=== PATIENT | female | born 1950 | race Caucasian/White ===

== ENCOUNTER → 2020-01-24 17:06 | Outpatient (CLI) | payer MEDICARE, SELFPAY ==
[2020-01-24 17:29] LABS: Basophils # 0.1 K/mm3 (0-0.2); Basophils % 0.7 % (0.1-2.0); Eosinophils # 0.3 K/mm3 (0.0-0.4); Eosinophils % 2.8 % (0.1-12.0); Hematocrit 45.6 % (37.0-47.0); Hemoglobin 14.3 g/dL (12.2-16.2); Lymphocytes # 2.7 K/mm3 (0.7-4.5); Lymphocytes % 25.3 % (10-50); Mean Corpuscular HGB Conc 31.4 g/dL (31.8-35.4); Mean Corpuscular Hemoglobin 27.7 pg (27.0-31.2); Mean Platelet Volume 9.3 fl (7.4-10.4); Monocytes # 0.5 K/mm3 (0.1-1.0); Monocytes % 4.8 % (1.7-9.3); Neutrophils % 66.3 % (37.0-80.0); Platelet Count 360 K/mm3 (142-424); Red Blood Count 5.18 M/mm3 (4.20-5.40); Red Cell Distribution Width 15.5 % (11.5-17.5); White Blood Count 10.6 K/mm3 (4.8-10.8)
[2020-01-24 17:30] LABS: Alanine Aminotransferase 28 U/L (12-78); Albumin Level 4.5 g/dl (3.5-5.0); Albumin/Globulin Ratio 1.5 (1.1-1.8); Alkaline Phosphatase 126 U/L (38-126); Anion Gap 17.3 mEq/L (5-15); Aspartate Amino Transferase 38 U/L (14-36); Bilirubin,Total 0.6 mg/dl (0.2-1.3); Blood Urea Nitrogen 16 mg/dl (7-17); Calcium 10.1 mg/dl (8.4-10.2); Carbon Dioxide 29 mmol/L (22.0-30.0); Chloride 98 mmol/L (98-107); Chol/HDL Ratio 4.1 (1-3.5); Cholesterol 192 mg/dl (140-200); Estimated Glomerular Filt Rate 44 ml/min (>60); GFR (African American) 54 ML/MIN (>60); Globulin 3.1 g/dL (1.3-3.2); Glucose 119 mg/dl (74-100); HDL Cholesterol 47 mg/dl (40-60); Potassium 4.3 mmoL/L (3.5-5.1); Sodium 140 mmol/L (136-145); Total Protein,Serum 7.6 g/dl (6.3-8.2); Triglycerides 271 mg/dl (30-150); VLDL Cholesterol 54 mg/dL (0-40)
[2020-01-24 17:41] LABS: Direct LDL Cholesterol 104.34 mg/dL (100-129)
[2020-01-24 18:00] LABS: Thyroid Stimulating Hormone 1.76 uIU/mL (0.465-4.68)
== END ==
PROVIDERS: Visit Provider Family Medicine
DX: E03.9 Hypothyroidism, unspecified (principal); R53.83 Other fatigue; K59.00 Constipation, unspecified
CPT/HCPCS: 80053; 80061; 84439; 84443; 85025

== ENCOUNTER → 2021-09-10 07:00 | Outpatient (CLI) | payer MEDICARE, SELFPAY ==
[2021-09-09 18:38] LABS: Alanine Aminotransferase 21 U/L (12-78); Albumin Level 3.9 g/dl (3.5-5.0); Albumin/Globulin Ratio 1.4 (1.1-1.8); Alkaline Phosphatase 87 U/L (38-126); Anion Gap 12.4 mEq/L (5-15); Aspartate Amino Transferase 31 U/L (14-36); Bilirubin,Total 0.3 mg/dl (0.2-1.3); Blood Urea Nitrogen 15 mg/dl (7-17); Calcium 9.7 mg/dl (8.4-10.2); Carbon Dioxide 33 mmol/L (22.0-30.0); Chloride 100 mmol/L (98-107); Chol/HDL Ratio 4.9 (1-3.5); Cholesterol 163 mg/dl (140-200); Estimated Glomerular Filt Rate 55 ml/min (>60); GFR (African American) 66 ML/MIN (>60); Globulin 2.8 g/dL (1.3-3.2); Glucose 123 mg/dl (74-100); HDL Cholesterol 33 mg/dl (40-60); Potassium 4.4 mmoL/L (3.5-5.1); Sodium 141 mmol/L (136-145); Total Protein,Serum 6.7 g/dl (6.3-8.2); Triglycerides 264 mg/dl (30-150); VLDL Cholesterol 53 mg/dL (0-40)
[2021-09-09 18:50] LABS: Direct LDL Cholesterol 83.29 mg/dL (100-129)
[2021-09-09 18:55] LABS: 25-OH Vitamin D, Total 49.8 ng/mL (30-100)
[2021-09-09 18:56] LABS: T4 (Thyroxine) 12.2 ug/dl (5.53-11.0)
[2021-09-09 19:09] LABS: Thyroid Stimulating Hormone 1.75 uIU/mL (0.465-4.68)
[2021-09-09 20:05] LABS: Basophils # 0.1 K/mm3 (0-0.2); Basophils % 1.4 % (0.1-2.0); Eosinophils # 0.4 K/mm3 (0.0-0.4); Eosinophils % 5.2 % (0.1-12.0); Hematocrit 42.6 % (37.0-47.0); Hemoglobin 13.8 g/dL (12.2-16.2); Lymphocytes # 2.7 K/mm3 (0.7-4.5); Mean Corpuscular HGB Conc 32.3 g/dL (31.8-35.4); Mean Corpuscular Hemoglobin 29.5 pg (27.0-31.2); Mean Corpuscular Volume 91.4 fl (81-99); Mean Platelet Volume 10.3 fl (7.4-10.4); Monocytes # 0.4 K/mm3 (0.1-1.0); Monocytes % 5.6 % (1.7-9.3); Neutrophils % 52.7 % (37.0-80.0); Platelet Count 254 K/mm3 (142-424); Red Blood Count 4.67 M/mm3 (4.20-5.40); Red Cell Distribution Width 14.9 % (11.5-17.5); White Blood Count 7.7 K/mm3 (4.8-10.8)
== END ==
PROVIDERS: PCP Family Medicine; Visit Provider Family Medicine
DX: E03.9 Hypothyroidism, unspecified (principal); I10 Essential (primary) hypertension; E55.9 Vitamin D deficiency, unspecified
CPT/HCPCS: 80053; 80061; 82306; 84436; 84443; 85025

== ENCOUNTER → 2022-03-22 16:04 | Outpatient (CLI) | payer MEDICARE, BC, SELFPAY ==
--- NOTE | 2022-03-22 16:04 | MR_ITS ---
PROCEDURE INFORMATION: Exam: MR Left Lower Extremity Joint Without Contrast; Hip Exam date and time: 03/22/2022 4:38 PM Age: 71 years old Clinical indication: Pain; Hip; Left; Prior surgery; Additional info: Worsening pain without trauma TECHNIQUE: Imaging protocol: Magnetic resonance imaging of the Left lower extremity joint without contrast. Exam focused on the hip. COMPARISON: No relevant prior studies available. FINDINGS: Bones and cartilage: No visualized acute marrow edema, dislocation, or avascular necrosis of the left hip. Magnetic susceptibility artifact from postoperative change is identified involving the lower lumbar spine and sacrum. Additional postsurgical change/hardware is seen traversing the bilateral sacroiliac joints. Mild left subcapital femoral spurring is seen. There is narrowing of the bilateral hip joint spaces superiorly. Irregularity/spurring of the superior acetabula bilaterally. These findings are consistent with hip arthropathy. Joint spaces: Small bilateral hip joint effusions. An 8 mm hypointense loose body is seen within the left hip joint effusion. Labrum: Evaluation of the hip labrum is technically limited, although no definitive labral tear is visualized. TENDONS: Tendons of iliopsoas group: Unremarkable. No evidence of tear. Tendons of medial compartment of thigh: No evidence of tear. Tendons of lateral rotators of hip: No evidence of tear. Tendons of gluteal group: No evidence of tear. Muscles: Patchy muscle atrophy visualized. Soft tissues: Minimal soft tissue edema lateral to each hip. Within the left adnexa, there is a 2.9 x 2.2 x 3.2 cm STIR hyperintense cyst. Lymph nodes: Small nonspecific bilateral inguinal lymph nodes visualized. Bowel: Bowel is contained within a ventral abdominal wall hernia. No visualized bowel distention. Evaluation of this finding is limited. Reproductive: The uterus is absent. IMPRESSION: 1. Small bilateral hip joint effusions. An 8 mm hypointense loose body is seen within the left hip joint effusion. 2. Bilateral hip arthropathy. 3. Postoperative changes involving the lumbosacral spine and traversing the bilateral sacroiliac joints. 4. Bowel is contained within a ventral abdominal wall hernia. No visualized bowel distention. Evaluation of this finding is limited. Correlation with a CT of the abdomen/pelvis is recommended, as clinically indicated. 5. Within the left adnexa, there is a 2.9 x 2.2 x 3.2 cm cyst. 6. Additional findings described above.
== END ==
PROVIDERS: PCP Family Medicine; Visit Provider Family Medicine
DX: M25.552 Pain in left hip (principal)
CPT/HCPCS: 73721

== ENCOUNTER → 2022-04-29 15:14 | Outpatient (CLI) | payer MEDICARE, BC, SELFPAY ==
[2022-04-29 15:06] LABS: Basophils # 0.1 K/mm3 (0-0.2); Basophils % 0.6 % (0.1-2.0); Eosinophils # 0.4 K/mm3 (0.0-0.4); Eosinophils % 2.7 % (0.1-12.0); Hematocrit 42.6 % (37.0-47.0); Lymphocytes # 2.2 K/mm3 (0.7-4.5); Lymphocytes % 16.8 % (10-50); Mean Corpuscular HGB Conc 32.9 g/dL (31.8-35.4); Mean Corpuscular Hemoglobin 30.3 pg (27.0-31.2); Mean Corpuscular Volume 91.9 fl (81-99); Mean Platelet Volume 10.3 fl (7.4-10.4); Monocytes # 0.6 K/mm3 (0.1-1.0); Monocytes % 4.8 % (1.7-9.3); Neutrophils # 9.8 K/mm3 (1.8-7.8); Neutrophils % 75.1 % (37.0-80.0); Platelet Count 381 K/mm3 (142-424); Red Blood Count 4.64 M/mm3 (4.20-5.40); Red Cell Distribution Width 14.1 % (11.5-17.5)
[2022-04-29 15:20] LABS: Alanine Aminotransferase 24 U/L (12-78); Albumin Level 3.9 g/dl (3.5-5.0); Albumin/Globulin Ratio 1.7 (1.1-1.8); Alkaline Phosphatase 76 U/L (38-126); Anion Gap 10.7 mEq/L (5-15); Aspartate Amino Transferase 25 U/L (14-36); Bilirubin,Total 0.7 mg/dl (0.2-1.3); Blood Urea Nitrogen 30 mg/dl (7-17); Carbon Dioxide 34 mmol/L (22.0-30.0); Chloride 93 mmol/L (98-107); Chol/HDL Ratio 5.7 (1-3.5); Cholesterol 176 mg/dl (140-200); Estimated Glomerular Filt Rate 34 ml/min (>60); GFR (African American) 41 ML/MIN (>60); Globulin 2.3 g/dL (1.3-3.2); Glucose 149 mg/dl (74-100); HDL Cholesterol 31 mg/dl (40-60); Potassium 4.7 mmoL/L (3.5-5.1); Sodium 133 mmol/L (136-145); Total Protein,Serum 6.2 g/dl (6.3-8.2); Triglycerides 344 mg/dl (30-150); Uric Acid 10.8 mg/dl (2.5-6.2); VLDL Cholesterol 69 mg/dL (0-40)
[2022-04-29 15:31] LABS: Direct LDL Cholesterol 85.79 mg/dL (100-129)
== END ==
PROVIDERS: PCP Family Medicine; Visit Provider Family Medicine
DX: E03.9 Hypothyroidism, unspecified (principal); M10.9 Gout, unspecified
CPT/HCPCS: 80053; 80061; 84443; 84550; 85025

== ENCOUNTER → 2022-08-11 23:20 | Outpatient (CLI) | payer MEDICARE, BC, SELFPAY ==
[2022-08-11 18:43] LABS: Alanine Aminotransferase 22 U/L (12-78); Albumin Level 3.9 g/dl (3.5-5.0); Albumin/Globulin Ratio 1.5 (1.1-1.8); Alkaline Phosphatase 85 U/L (38-126); Anion Gap 18.9 mEq/L (5-15); Aspartate Amino Transferase 28 U/L (14-36); Bilirubin,Total 0.5 mg/dl (0.2-1.3); Blood Urea Nitrogen 18 mg/dl (7-17); Calcium 8.8 mg/dl (8.4-10.2); Carbon Dioxide 28 mmol/L (22.0-30.0); Chloride 95 mmol/L (98-107); Estimated Glomerular Filt Rate 49 ml/min (>60); GFR (African American) 59 ML/MIN (>60); Globulin 2.6 g/dL (1.3-3.2); Glucose 144 mg/dl (74-100); Potassium 3.9 mmoL/L (3.5-5.1); Sodium 138 mmol/L (136-145); Total Protein,Serum 6.5 g/dl (6.3-8.2); Uric Acid 7.7 mg/dl (2.5-6.2)
== END ==
PROVIDERS: PCP Family Medicine; Visit Provider Family Medicine
DX: M10.9 Gout, unspecified (principal)
CPT/HCPCS: 80053; 84550

== ENCOUNTER → 2023-02-20 08:17 | Outpatient (CLI) | payer MEDICARE, BC, SELFPAY ==
[2023-02-20 19:45] LABS: Basophils # 0.1 K/mm3 (0-0.2); Basophils % 0.6 % (0.1-2.0); Eosinophils # 0.2 K/mm3 (0.0-0.4); Eosinophils % 2.7 % (0.1-12.0); Hematocrit 44.8 % (37.0-47.0); Lymphocytes # 2.5 K/mm3 (0.7-4.5); Lymphocytes % 28.6 % (10-50); Mean Corpuscular HGB Conc 33.5 g/dL (31.8-35.4); Mean Corpuscular Hemoglobin 30.5 pg (27.0-31.2); Mean Corpuscular Volume 91.2 fl (81-99); Mean Platelet Volume 10.4 fl (7.4-10.4); Monocytes # 0.4 K/mm3 (0.1-1.0); Monocytes % 4.9 % (1.7-9.3); Neutrophils # 5.4 K/mm3 (1.8-7.8); Neutrophils % 63.2 % (37.0-80.0); Platelet Count 287 K/mm3 (142-424); Red Blood Count 4.91 M/mm3 (4.20-5.40); Red Cell Distribution Width 14.6 % (11.5-17.5); White Blood Count 8.6 K/mm3 (4.8-10.8)
[2023-02-20 19:53] LABS: Alanine Aminotransferase 20 U/L (12-78); Albumin/Globulin Ratio 1.4 (1.1-1.8); Alkaline Phosphatase 83 U/L (38-126); Anion Gap 14.9 mEq/L (5-15); Aspartate Amino Transferase 29 U/L (14-36); Bilirubin,Total 0.7 mg/dl (0.2-1.3); Blood Urea Nitrogen 24 mg/dl (7-17); Calcium 9.1 mg/dl (8.4-10.2); Carbon Dioxide 27 mmol/L (22.0-30.0); Chloride 98 mmol/L (98-107); Chol/HDL Ratio 7.1 (1-3.5); Cholesterol 191 mg/dl (140-200); Estimated Glomerular Filt Rate 44 ml/min (>60); GFR (African American) 53 ML/MIN (>60); Globulin 2.9 g/dL (1.3-3.2); Glucose 135 mg/dl (74-100); HDL Cholesterol 27 mg/dl (40-60); Potassium 3.9 mmoL/L (3.5-5.1); Sodium 136 mmol/L (136-145); Total Protein,Serum 6.9 g/dl (6.3-8.2); Triglycerides 257 mg/dl (30-150); Uric Acid 8.5 mg/dl (2.5-6.2); VLDL Cholesterol 51 mg/dL (0-40)
[2023-02-20 20:04] LABS: Direct LDL Cholesterol 108.69 mg/dL (100-129)
[2023-02-20 20:23] LABS: Thyroid Stimulating Hormone 0.48 uIU/mL (0.465-4.68)
== END ==
PROVIDERS: PCP Family Medicine; Visit Provider Family Medicine
DX: E03.9 Hypothyroidism, unspecified; M10.9 Gout, unspecified; E07.9 Disorder of thyroid, unspecified; E78.5 Hyperlipidemia, unspecified; Z13.1 Encounter for screening for diabetes mellitus; Z79.899 Other long term (current) drug therapy
CPT/HCPCS: 80053; 80061; 83036; 84443; 84550; 85025

== ENCOUNTER 2024-01-29 11:15 | Outpatient (CLI) | payer MEDICARE, BC, SELFPAY ==
[2024-01-29 18:57] LABS: Basophils # 0.1 K/mm3 (0-0.2); Basophils % 0.7 % (0.1-2.0); Eosinophils # 0.2 K/mm3 (0.0-0.4); Hematocrit 41.9 % (37.0-47.0); Hemoglobin 13.5 g/dL (12.2-16.2); Lymphocytes # 1.6 K/mm3 (0.7-4.5); Lymphocytes % 16.8 % (10-50); Mean Corpuscular HGB Conc 32.3 g/dL (31.8-35.4); Mean Corpuscular Hemoglobin 28.9 pg (27.0-31.2); Mean Corpuscular Volume 89.7 fl (81-99); Monocytes # 0.6 K/mm3 (0.1-1.0); Monocytes % 5.7 % (1.7-9.3); Neutrophils # 7.2 K/mm3 (1.8-7.8); Neutrophils % 74.8 % (37.0-80.0); Platelet Count 316 K/mm3 (142-424); Red Blood Count 4.67 M/mm3 (4.20-5.40); Red Cell Distribution Width 16.1 % (11.5-17.5); White Blood Count 9.7 K/mm3 (4.8-10.8)
[2024-01-29 18:59] LABS: Alanine Aminotransferase 17 U/L (12-78); Albumin Level 3.7 g/dl (3.5-5.0); Albumin/Globulin Ratio 1.4 (1.1-1.8); Alkaline Phosphatase 82 U/L (38-126); Anion Gap 17.1 mEq/L (5-15); Aspartate Amino Transferase 21 U/L (14-36); Bilirubin,Total 0.6 mg/dl (0.2-1.3); Blood Urea Nitrogen 16 mg/dl (7-17); Calcium 8.9 mg/dl (8.4-10.2); Carbon Dioxide 29 mmol/L (22.0-30.0); Chloride 96 mmol/L (98-107); Cholesterol 145 mg/dl (140-200); Estimated Glomerular Filt Rate 49 ml/min (>60); GFR (African American) 59 ML/MIN (>60); Globulin 2.7 g/dL (1.3-3.2); Glucose 122 mg/dl (74-100); HDL Cholesterol 36 mg/dl (40-60); Potassium 4.1 mmoL/L (3.5-5.1); Sodium 138 mmol/L (136-145); Total Protein,Serum 6.4 g/dl (6.3-8.2); Triglycerides 214 mg/dl (30-150); VLDL Cholesterol 43 mg/dL (0-40)
[2024-01-29 19:10] LABS: Direct LDL Cholesterol 86.78 mg/dL (100-129)
[2024-01-29 19:31] LABS: Thyroid Stimulating Hormone 4.28 uIU/mL (0.465-4.68)
[2024-01-29 19:49] LABS: Hemoglobin A1C 6.4 % (4.0-6.0)
== END 2024-01-29 23:59 | disposition home or self-care (01) ==
LOC: LAB.DROPOF 01-30 13:07
PROVIDERS: PCP Family Medicine; Visit Provider Family Medicine
DX: I10 Essential (primary) hypertension (principal); E78.5 Hyperlipidemia, unspecified; E11.9 Type 2 diabetes mellitus without complications
CPT/HCPCS: 80053; 80061; 83036; 84443; 85025

== ENCOUNTER 2024-07-01 10:32 | Outpatient (CLI) | payer MEDICARE, BC, SELFPAY ==
[2024-07-01 18:50] LABS: Basophils # 0.1 K/mm3 (0-0.2); Basophils % 0.7 % (0.1-2.0); Eosinophils # 0.2 K/mm3 (0.0-0.4); Eosinophils % 2.6 % (0.1-12.0); Hematocrit 42.6 % (37.0-47.0); Hemoglobin 13.5 g/dL (12.2-16.2); Lymphocytes # 1.9 K/mm3 (0.7-4.5); Lymphocytes % 21.8 % (10-50); Mean Corpuscular HGB Conc 31.7 g/dL (31.8-35.4); Mean Corpuscular Hemoglobin 30.2 pg (27.0-31.2); Mean Corpuscular Volume 95.3 fl (81-99); Mean Platelet Volume 11.1 fl (7.4-10.4); Monocytes # 0.6 K/mm3 (0.1-1.0); Monocytes % 7.2 % (1.7-9.3); Neutrophils % 67.7 % (37.0-80.0); Platelet Count 265 K/mm3 (142-424); Red Blood Count 4.47 M/mm3 (4.20-5.40); Red Cell Distribution Width 14.1 % (11.5-17.5); White Blood Count 8.9 K/mm3 (4.8-10.8)
[2024-07-01 20:19] LABS: Hemoglobin A1C 6.6 % (4.0-6.0)
[2024-07-01 20:44] LABS: Albumin Level 3.8 g/dl (3.5-5.0); Chloride 102 mmol/L (98-107); Potassium 4.2 mmoL/L (3.5-5.1); Sodium 136 mmol/L (136-145)
[2024-07-01 20:47] LABS: Alanine Aminotransferase 21 U/L (12-78); Albumin/Globulin Ratio 1.5 (1.1-1.8); Alkaline Phosphatase 85 U/L (38-126); Anion Gap 12.2 mEq/L (5-15); Aspartate Amino Transferase 21 U/L (14-36); Bilirubin,Total 0.6 mg/dl (0.2-1.3); Blood Urea Nitrogen 17 mg/dl (7-17); Carbon Dioxide 26 mmol/L (22.0-30.0); Cholesterol 135 mg/dl (140-200); Estimated Glomerular Filt Rate 49 ml/min (>60); GFR (African American) 59 ML/MIN (>60); Globulin 2.5 g/dL (1.3-3.2); Total Protein,Serum 6.3 g/dl (6.3-8.2); Triglycerides 150 mg/dl (30-150); VLDL Cholesterol 30 mg/dL (0-40)
[2024-07-01 20:48] LABS: Calcium 8.5 mg/dl (8.4-10.2); Chol/HDL Ratio 3.9 (1-3.5); Glucose 142 mg/dl (74-100); HDL Cholesterol 35 mg/dl (40-60)
[2024-07-01 20:57] LABS: NT Pro Brain Natriuretic Pep. 283 pg/mL (0-125)
[2024-07-01 20:58] LABS: Direct LDL Cholesterol 65.66 mg/dL (100-129)
[2024-07-01 21:17] LABS: Thyroid Stimulating Hormone 2.59 uIU/mL (0.465-4.68)
== END 2024-07-01 23:59 | disposition home or self-care (01) ==
LOC: LAB.DROPOF 07-03 10:33
PROVIDERS: PCP Family Medicine; Visit Provider Family Medicine
DX: E03.9 Hypothyroidism, unspecified (principal); Z13.1 Encounter for screening for diabetes mellitus; I50.9 Heart failure, unspecified; R60.9 Edema, unspecified; I11.0 Hypertensive heart disease with heart failure
CPT/HCPCS: 80053; 80061; 83036; 83880; 84436; 84443; 85025

== ENCOUNTER 2024-09-16 16:25 | Outpatient (CLI) | payer MEDICARE, BC, SELFPAY ==
--- OUTSIDE RECORDS SUMMARY | 2015-12-18 15:25 | XMS_ITS | Encounter Summary ---
Author Organization [place] [address] Care Team Providers Care Tab Cutter Name Role Phone Jose R Prado MD, Malvin Primary Care Provider + Yoseph Trevino MD Unavailable Unavailabl e Encounter Details Date Type Department Care Team (Late st Contact Info) Description 12/18/2015 3:25 PM EDT Hospital Encounter [facility] Referral Lab [address] [address] [id number] Juan Shen MD [address] [place] [address] Low back pain Social History Tobacco Use Types Packs/Day Years Used Date Smoking Tobacco: Never Smokeless Tobacco: Never Alcohol Use Standard Drinks/Week Comments No 0 (1 standard drink = 0.6 oz pur e alcohol) [facility] Utilities Answer Date Recorded In the past 12 months has [facility] [employer], gas, oil, or water [employer] threatened to shut off services in your home? No 10/03/2023 Overall Financial Resource Strain (CARDIA) Answe r Date Recorded How hard is it for you to pa y for the very basics like food, housing, medical care, and heating? Not hard at all 10/03/2023 PHQ-2 Answer Date Recorded PHQ-2 Total Score 0 10/03/2023 [facility] of Occupat ional Health - Occupational Stress Questionnaire Answer Date Recorded Do you feel stress - tense, restless, nervous, or anxious, or unable to sleep at night because your mind is troubled all the time - these days? Not at all 10/03/2023 Exercise Vital Sign Answer Date Recorde d On average, how many days pe r week do you engage in moderate to strenuous exercise (like a brisk walk)? 0 days 10/03/2023 On average, how many minutes do you engage in exercise at this level? 0 min 10/03/2023 Hunger Vital Sign Answer Date Recorded Within the past 12 months, y ou worried that your food would run out before you got the money to buy more. Never true 10/03/19 24 Within the past 12 months, t he food you bought just didn't last and you didn't have money to get more. Never true 10/03/2023 [facility] IP Transportation Answer D ate Recorded In the past 12 months, has l ack of reliable transportation kept you from medical appointments, meetings, work or from getting things needed for daily living? No 10/03/2023 Comments No Sex and Gender Information Value Date Recorded Sex Assigned at Not on file Legal Sex Female 1:42 PM EDT Gender Identity Not on file Sexual Orientation Not on file COVID-19 Exposure Response Date Recorded In the last 10 days, have yo u been in contact with someone who was confirmed or suspected to have Coronavirus/COVID-19? No / Unsure 09/01/2023 12:32 PM EDT documented as of this encounter Functional Status * Alcohol Screening Score Answer Date of Assessment Author 0 10/02/2023 8:10 PM EDT Thelma Daily RN * Drug Screening Score Answer Date of Assessment Author 0 10/02/2023 8:10 PM EDT Thelma Daily RN * Question Answer Date of Assessment Author How often do you have a drin k containing alcohol? 0 10/02/2023 8:10 PM EDT Grace Daily R N How many drinks containing a lcohol do you have on a typical day when you are drinking? 0 10/02/2023 8:10 PM EDT Grace Daily R N How often do you have six or more drinks on one occasion? 0 10/02/2023 8:10 PM EDT Grace Daily RN AUDIT-C to Determine Rows 4-10 0 10/02/2023 8:10 PM EDT Grace Daily RN * Question Answer Date of Assessment Author Little interest or pleasure in doing things 0 10/03/2023 11:01 AM EDT Myesha Farley RN Feeling down, depressed, or hopeless 0 10/03/2023 11:01 AM EDT Myesha Farley RN PHQ-2 Total Score 0 10/03/2023 11:01 AM EDT Myesha Farley RN * PHQ-9 Total Score Answer Date of Assessment Author 0 10/03/2023 11:01 AM EDT Myesha Farley RN * Suicide Severity Rating Answer Date of Assessment Author No Risk 10/02/2023 6:00 PM EDT Jose J Goldstein RN * [place] Suicide Severity Rating Scale (Q shift for moderate and high) Question Answer Date of Assessment Author 1. In the past month, have y ou wished you were or wished you could go to sleep and not wake up? 0 10/02/2023 6:00 PM EDT Jose J Arvizu RN 2. In the past month, have y ou actually had any thoughts of killing yourself? (If no, skip to question 6) 0 10/02/2023 6:00 PM EDT Jose J Goldstein, Gumaro N 6. Have you ever done anythi ng, started to do anything, or prepared to do anything to end your life? 0 10/02/2023 6:00 PM EDT Jose J Cordon RN documented as of this encounter Plan of Treatment Upcoming Encounters Date Type Department Care Team (Late st Contact Info) Description 11/11/2024 9:15 AM EDT Office Visit [facility] [address] [address] Filippo De Guzman MD [address] [place] [phone] 12/10/2024 10:15 AM EDT Office Visit [facility] Nephrology [place] [address] [place] [address] Fouzia Wyatt MD [address] [facility] [place] [address] Scheduled Orders Name Type Priority Associated Diagnoses Orde r Schedule CREATININE Lab Routine Low back pain ONCE for 1 Occurrences starting 12/18/2015 until 01/22/2016 documented as of this encounter Visit Diagnoses Diagnosis Low back pain Lumbago documented in this encounter Care Teams Tab Cutter Relationship Specialty Start Date End Date Malvin Odell MD [address] [place] [phone] PCP - General Family Medicine 02/28/11 08/04/19 Yoseph Trevino MD [address] [place] [address] Physician Internal Medicine-Cardiovascular Disease 05/05/14 12/13/21 documented as of this encounter
--- OUTSIDE RECORDS SUMMARY | 2024-07-22 06:54 | XMS_ITS | Encounter Summary ---
Author Organization [place] [address] Care Team Providers Care Bedspread Folder Name Role Phone Fouzia Wyatt MD Unavailable [phone] Sky Pickens MD Primary Care Provider [phone] Filippo De Guzman MD Unavailable [phone] Reason for Referral * Echo (Routine) - Authorization Not Needed Specialty Diagnoses / Procedures Referred By Contac t Referred To Contact Radiology Diagnoses Swelling of lower extremity Dyspnea on exertion Procedures EC ECHOCARDIOGRAM COMPLETE W DOPPLER AND COLOR FLOW MAPPING Gail Ramey APRN [address] [facility] [place] [address] Phone: tel: fax: Referral ID Status Reason Start Date Expiration Date Visits Requested Visits Authorized [id number] Authorization Not Needed 07/08/2024 07/08/2026 1 1 Reason for Visit * Echo (Routine) - Authorization Not Needed Specialty Diagnoses / Procedures Referred By Contac t Referred To Contact Radiology Diagnoses Swelling of lower extremity Dyspnea on exertion Procedures EC ECHOCARDIOGRAM COMPLETE W DOPPLER AND COLOR FLOW MAPPING Gail Ramey APRN [address] [facility] [place] [address] Phone: tel: fax: Referral ID Status Reason Start Date Expiration Date Visits Requested Visits Authorized [id number] Authorization Not Needed 07/08/2024 07/08/2026 1 1 Encounter Details Date Type Department Care Team (Latest Contact Info) Description 07/22/2024 6:54 AM EDT Hospital Encounter [facility] [address] [place] [id number] Gail Ramey APRN [address] [facility] [address] [place] [id number] Swelling of lower extremity; Dyspnea on exertion Discharge Disposition: Home or Self Care Social History Tobacco Use Types Packs/Day Years Used Date Smoking Tobacco: Never Smokeless Tobacco: Never Alcohol Use Standard Drinks/Week Comments No 0 (1 standard drink = 0.6 oz pur e alcohol) [facility] Utilities Answer Date Recorded In the past 12 months has e electric, gas, oil, or water company threatened to shut off services in your home? No 10/03/2023 Overall Financial Resource Strain (CARDIA) Answe r Date Recorded How hard is it for you to pa y for the very basics like food, housing, medical care, and heating? Not hard at all 10/03/2023 PHQ-2 Answer Date Recorded PHQ-2 Total Score 0 10/03/2023 [facility] [place] of Occupat ional Health - Occupational Stress [...] money to get more. Never true 10/03/2023 [facility] IP Transportation Answer D ate Recorded In [...] on file Sexual Orientation Not on file documented as of this encounter Medications at Time of Discharge amitriptyline (ELAVIL) 100 mg tablet Take 100 mg by mouth nightly. aspirin 325 mg Take 325 mg by mouth daily. bisacodyl (DULCOLAX) 5 mg Oral Tablet, Delayed Release (E.C.) Take 5 mg by mouth daily as needed for Constipation. bisoprolol-hydroc hlorothiazide (ZIAC) 10-6.25 mg per tablet Take 1 Tab by mouth daily. CALCIUM CARBONATE/VITAMIN D3 (CALTRATE 600 + D ORAL) Take 2 Tabs by mouth daily. ergocalciferol (DRISDOL) 50,000 unit Oral Capsule Take by mouth once a week. gabapentin (NEURONTIN) 300 mg Oral Capsule 300 mg 3 times daily. 08/30/2023 hydrALAZINE (APRESOLINE) 100 mg Oral Tablet 100 mg. 11/09/2023 HYDROcodone-aceta minophen (NORCO) 5-325 mg Oral Tablet Take 1 Tablet by mouth 2 times daily as needed. LORazepam (ATIVAN) 0.5 mg Oral Tablet 0.5 mg. 08/30/2023 losartan (COZAAR) 100 mg Oral Tablet 100 mg. 11/01/2023 magnesium hydroxide (MILK OF MAGNESIA) 400 mg/5 mL Oral Suspension Take 5 mL by mouth 2 times daily as needed. Multivitamins-Min erals-Lutein Oral Tablet Take by mouth daily. nitroGLYCERIN (NITROSTAT) 0.4 mg SL Tablet, Sublingual Place 0.4 mg under the tongue every 5 minutes as needed. 07/01/2024 oxyCODONE-acetami nophen (PERCOCET) 5-325 mg Oral TabletIndications :S/P repair of recurrent ventral hernia Take 1 Tablet by mouth every 6 hours. 30 Tablet 11/03/2023 potassium chloride (KLOR-CON M) 20 mEq Oral Tab Sust.Rel. Particle/Crystal Take 20 mEq by mouth daily. 07/01/2024 rosuvastatin (CRESTOR) 10 mg Oral Tablet Take 10 mg by mouth daily. SYNTHROID 125 mcg Oral Tablet 12/01/2023 torsemide (DEMADEX) 20 mg Oral Tablet Take 20 mg by mouth. 07/01/2024 documented as of this encounter Discharge Disposition Disposition Code Departure Means Destination Home or Self Care documented in this encounter Plan of Treatment Upcoming Encounters Date Type Department Care Team (Late st Contact Info) Description 11/11/2024 9:15 AM EDT Office Visit [facility] [address] [address] Filippo De Guzman MD [address] [place] [phone] 12/10/2024 10:15 AM EDT Office Visit [facility] Nephrology [place] [address] [place] [address] Fouzia Wyatt MD [address] [place] [address] documented as of this encounter Procedures Procedure Name Priority Date/Time Associated Diagnosis Comments EC ECHOCARDIOGRAM COMPLETE W DOPPLER AND COLOR FLOW MAPPING Routine 07/22/2024 7:53 AM EDT Swelling of lower extremity Dyspnea on exertion documented in this encounter Results * EC ECHOCARDIOGRAM COMPLETE W DOPPLER AND COLOR FLOW MAPPING (07/22/2024 7:53 AM EDT) LV DIASTOLIC PLAX 3.56 cm PYRAMIS AORTIC STENOSIS no PYRAMIS MITRAL REGURGITATION no PYRAMIS Ejection Fraction 65-70% PYRAMIS Anatomical Region Laterality Modality Electrocardiogra phy 07/22/2024 7:12 AM EDT Impressions 07/22/2024 4:35 PM EDT Conclusions * Left ventricular function is hyperdynamic with an estimated ejection fraction of 65-70%. * Left ventricular segmental wall motion is normal. * The left ventricular diastolic function is indeterminate. * Right ventricular systolic function is reduced. Narrative Procedure Note Filippo De Guzman MD - 07/22/2024 IMPRESSION Conclusions * Left ventricular function is hyperdynamic with an estimated ejection fraction of 65-70%. * Left ventricular segmental wall motion is normal. * The left ventricular diastolic function is indeterminate. * Right ventricular systolic function is reduced. Gail Ramey ERIC IMG ECHO ORDERABLES Final Resu lt documented in this encounter Visit Diagnoses Diagnosis Swelling of lower extremity Dyspnea on exertion Other dyspnea and respiratory abnormality documented in this encounter Additional Health Concerns Assessment Noted Time A fall risk assessment has been complete d for the patient 12/27/2018 4:08 PM EDT documented as of this encounter Care Teams Bedspread Folder Relationship Specialty Start Date End Date Sky Pickens MD [address] [facility] [address] [place] [phone] PCP - General Family Medicine 08/05/19 Fouzia Wyatt MD [address] [facility] [place] [place] [phone] Consulting Physician Internal Medicine-Nephrology 01/18/19 Filippo De Guzman MD [address] [facility] [place] [address] Internal Medicine-Cardiovascular Disease 11/11/21 documented as of this encounter
--- OUTSIDE RECORDS SUMMARY | 2024-07-22 06:54 | XMS_ITS | Encounter Summary ---
Author [place] [address] Care Team Providers Care Pillowcase Cutter Name Role Phone Fouzia Wyatt MD Unavailable [phone] Sky Pickens MD Primary Care Provider [phone] Filippo De Guzman MD Unavailable [phone] Reason for Referral * Nuclear Medicine (Routine) - Authorization Not Needed Specialty Diagnoses / Procedures Referred By Contac t Referred To Contact Radiology Diagnoses Dyspnea on exertion Chest pain, unspecified type Procedures NM MYOCARDIAL PERFUSION SPECT STRESS AND REST Gail Ramey APRN [address] [facility] [place] [address] Phone: tel: fax: Referral ID Status Reason Start Date Expiration Date Visits Requested Visits Authorized [id number] Authorization Not Needed 07/08/2024 07/08/2025 5 5 Reason for Visit * Nuclear Medicine (Routine) - Authorization Not Needed Specialty Diagnoses / Procedures Referred By Contac t Referred To Contact Radiology Diagnoses Dyspnea on exertion Chest pain, unspecified type Procedures NM MYOCARDIAL PERFUSION SPECT STRESS AND REST Gail Ramey APRN [address] [facility] [place] [address] Phone: tel: fax: Referral ID Status Reason Start Date Expiration Date Visits Requested Visits Authorized [id number] Authorization Not Needed 07/08/2024 07/08/2025 5 5 Encounter Details Date Type Department Care Team (Latest Contact Info) Description 07/22/2024 6:54 AM EDT Hospital Encounter [facility] [place] [address] [facility] [address] [place] [phone] Gail Ramey APRN [address] [facility] [address] [place] [id number] Dyspnea on exertion; Chest pain, unspecified type Discharge Disposition: Home or Self Care Social History Tobacco Use Types Packs/Day Years Used Date Smoking Tobacco: Never Smokeless Tobacco: Never Alcohol Use Standard Drinks/Week Comments No 0 (1 standard drink = 0.6 oz pur e alcohol) [facility] Utilities Answer Date Recorded In the [...] Date Recorded PHQ-2 Total Score 0 10/03/2023 [facility] [place] of Occupat ional Health - Occupational Stress [...] money to get more. Never true 10/03/2023 [facility] IP Transportation Answer D ate Recorded In [...] 9:15 AM EDT Office Visit [facility] [address] [address] Filippo De Guzman MD [address] [place] [phone] 12/10/2024 10:15 AM EDT Office Visit [facility] Nephrology [place] [address] [facility] [place] [address] Fouzia Wyatt MD [address] [place] [address] documented as of this encounter Procedures Procedure Name Priority Date/Time Associated Diagnosis Comments NM MYOCARDIAL PERFUSION SPECT STRESS AND REST Routine 07/22/2024 10:43 AM EDT Dyspnea on exertion Chest pain, unspecified type documented in this encounter Results * NM MYOCARDIAL PERFUSION SPECT STRESS AND REST (07/22/2024 10:43 AM EDT) Anatomical Region Laterality Modality Nuclear Medicine 07/22/2024 8:30 AM EDT Impressions 07/22/2024 4:30 PM EDT Conclusions * Overall left ventricular systolic function was normal without regional wall motion abnormalities. * Mild heterogeneity of isotope uptake noted but not in a pattern consistent with ischemia. * No evidence of myocardial ischemia. * This study suggests a low likelihood of major adverse cardiac events in the future provided all risk factors are treated. Narrative Procedure Note Filippo De Guzman MD - 07/22/2024 IMPRESSION Conclusions * Overall left ventricular systolic function was normal withoutregional wall motion abnormalities. * Mild heterogeneity of isotope uptake noted but not in a patternconsistent with ischemia. * No evidence of myocardial ischemia. * This study suggests a low likelihood of major adverse cardiac eventsin the future provided all risk factors are treated. Gail Ramey ERIC IMG NM CARDIAC ORDERABLES Gabriella l Result documented in this encounter Visit Diagnoses Diagnosis Dyspnea on exertion Other dyspnea and respiratory abnormality Chest pain, unspecified type documented in this encounter Administered Medications Inactive Administered Medications - up to 1 most recent administrations Medication Order MAR Action Action Date Dose Rate Site Sy-32h-vajkkaicpzl (MYOVIEW) injection 8-45 millicurie 8-45 millicurie, Intravenous, ONCE PRN, 1 dose, Starting on Mon07/22/24 at 0801, Until Mon07/22/24 at 0914, Radiography/Imaging, Radiology Procedure, Administration dose must be within 10% of the ordered dose for radiopharmaceutical medications., Radiology Given 07/22/2024 9:14 AM EDT 39.7 millicuries Mu-15h-fgaqhmhnutt (MYOVIEW) injection 8-45 millicurie 8-45 millicurie, Intravenous, ONCE PRN, 1 dose, Starting on Mon07/22/24 at 0801, Until Mon07/22/24 at 0758, Radiography/Imaging, Radiology Procedure, Administration dose must be within 10% of the ordered dose for radiopharmaceutical medications., Radiology Given 07/22/2024 7:58 AM EDT 13.1 millicuries documented in this encounter Orders Medications Ordered That Wiley ht Not Have Been Administered Count Last Ordered Date First Ordered Date Ko-70v-ljqppcwkwwe (MYOVIEW) injection 8-45 millicurie 1 07/22/2024 documented in this encounter Additional Health Concerns Assessment Noted Time A fall risk assessment has been complete d for the patient 12/27/2018 4:08 PM EDT documented as of this encounter Care Teams Pillowcase Cutter Relationship Specialty Start Date End Date Sky Pickens MD [address] [place] [phone] PCP - General Family Medicine 08/05/19 Fouzia Wyatt MD [address] [facility] [address] [place] [address] Consulting Physician Internal Medicine-Nephrology 01/18/19 Filippo De Guzman MD 1 [facility] [place] [address] Internal Medicine-Cardiovascular Disease 11/11/21 documented as of this encounter
--- OUTSIDE RECORDS SUMMARY | 2024-07-22 06:55 | XMS_ITS | Encounter Summary ---
Author Organization [place] [address] Care Team Providers Care Ad Operations Intern Name Role Phone Fouzia Wyatt MD Unavailable [phone] Sky Pickens MD Primary Care Provider [phone] Filippo De Guzman MD Unavailable [phone] Reason for Referral * Stress (Routine) - Pending Review Specialty Diagnoses / Procedures Referred By Contac t Referred To Contact Radiology Diagnoses Dyspnea on exertion Chest pain, unspecified type Procedures ST STRESS TEST Gail Aranda APRN [address] [address] Phone: tel: fax: Referral ID Status Reason Start Date Expiration Date V isits Requested Visits Authorized [id number] Pending Review 07/08/2024 07/08/2026 1 1 Reason for Visit * Stress (Routine) - Pending Review Specialty Diagnoses / Procedures Referred By Contac t Referred To Contact Radiology Diagnoses Dyspnea on exertion Chest pain, unspecified type Procedures ST STRESS TEST Gail Aranda APRN [address] [place] [address] Phone: tel: fax: Referral ID Status Reason Start Date Expiration Date V isits Requested Visits Authorized [id number] Pending Review 07/08/2024 07/08/2026 1 1 Encounter Details Date Type Department Care Team (Latest Contact Info) Description 07/22/2024 6:55 AM EDT - 07/22/2024 11:59 PM EDT Hospital Encounter [facility] [address] [place] [id number] Gail Ramey APRN [address] [facility] [place] [id number] Dyspnea on exertion; Chest pain, unspecified type Discharge Disposition: Home or Self Care Social History Tobacco Use Types Packs/Day Years Used Date Smoking Tobacco: Never Smokeless Tobacco: Never Alcohol Use Standard Drinks/Week Comments No 0 (1 standard drink = 0.6 oz pur e alcohol) [facility] Utilities Answer Date Recorded In the past 12 months has th e electric, gas, oil, or water company threatened to shut off services in your home? No 10/03/2023 Overall Financial Resource Strain (CARDIA) Answe r Date Recorded How hard is it for you to pa y for the very basics like food, housing, medical care, and heating? Not hard at all 10/03/2023 PHQ-2 Answer Date Recorded PHQ-2 Total Score 0 10/03/2023 [facility] of Occupat ional Health - Occupational Stress [...] money to get more. Never true 10/03/2023 [facility] IP Transportation Answer D ate Recorded In [...] or Self Care documented in this encounter Progress Notes * Leona Wynn RN - 07/22/2024 10:30 AM EDT Stress test procedure and medications explained to the patient. Patient verbalized understanding ofprocedure & medications and all questions answered. Patient education reinforced during and after procedure. documented in this encounter Plan of Treatment Upcoming Encounters Date Type Department Care Team (Late st Contact Info) Description 11/11/2024 9:15 AM EDT Office [place] [address] Filippo De Guzman MD [address] [place], [place] [id number] 12/10/2024 10:15 AM EDT Office Visit [facility] [place] [address] [place] [address] Fouzia Wyatt MD [address] [address] documented as of this encounter Procedures Procedure Name Priority Date/Time Associated Diagnosis Comments ST STRESS TEST LEXISCAN Routine 07/22/2024 9:51 AM EDT Dyspnea on exertion Chest pain, unspecified type documented in this encounter Results * ST STRESS TEST LEXISCAN (07/22/2024 9:51 AM EDT) Anatomical Region Laterality Modality Cardiac Stress T esting 07/22/2024 9:09 AM EDT Impressions 07/22/2024 12:16 PM EDT [facility] Test Date: 2024-07-22 Pat Name: RUPERT ESPOSITO Department: DEPID Room: Gender: Female 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 Lexiscan 0.4 mg was given IV push at 30 seconds into protocol at 9:15 AM. 2. Lexiscan injection was done without low level exercise. 3. Was the test changed from Exercise to Lexiscan? no 4. Termination of test due to protocol completion. 5. Symptoms: None 6. Aminophylline was not given. 7. Nuclear Imaging reported separately. 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 Lexiscan 0.4 mg was given IV push at 30 seconds into protocol at 9:15AM. 2. Lexiscan injection was done without low level exercise. 3. Was the test changed from Exercise to Lexiscan? no 4. Termination of test due to protocol completion. 5. Symptoms: None 6. Aminophylline was not given. 7. Nuclear Imaging reported separately. PhysicianInterpretation Baseline ECG: Sinus rhythm - NSST changes Arrhythmia: None Conclusion: Test is non-diagnostic due to Lexiscan protocol/ InadequateHR Electronically Signed On 07-22-2024 12:16:29 EDT by Kevin Plummer MD Gail Ramey RETORT LOAD EXPEDITER IMG STRESS ORDERABLES Final Re sult documented in this encounter Visit Diagnoses Diagnosis Dyspnea on exertion Other dyspnea and respiratory abnormality Chest pain, unspecified type documented in this encounter Administered Medications Inactive Administered Medications - up to 1 most recent administrations Medication Order MAR Action Action Date Dose Rate Site regadenoson (LEXISCAN) injection 0.4 mg 0.4 mg, Intravenous, ONCE, 1 dose, On Mon07/22/24 at 0815, Stress Meds Given 07/22/2024 9:15 AM EDT 0.4 mg sodium chloride 0.9% syringe Intravenous, PRN, Starting on Mon07/22/24 at 0812, Until Mon07/22/24 at 0952, Line Care, Flush with 5-10 mL saline pre/post IVP, and 5 mL prior to IVPB or blood product administration., Stress Meds Given 07/22/2024 9:15 AM EDT documented in this encounter Orders Medications Ordered That Wiley ht Not Have Been Administered Count Last Ordered Date First Ordered Date albuterol (PROVENTIL HFA; VE NTOLIN HFA) INHALER 2 Puff 1 07/22/2024 aminophylline injection 125 mg 1 07/22/2024 nitroGLYCERIN (NITROSTAT) SL tablet 0.4 mg 1 07/22/2024 sodium chloride 0.9 % 250 mL IV bolus 1 sodium chloride 0.9% IV line flush 20-50 mL 1 07/22/2024 documented in this encounter Additional Health Concerns Assessment Noted Time A fall risk assessment has been complete d for the patient 12/27/2018 4:08 PM EDT documented as of this encounter Care Teams Ad Operations Intern Relationship Specialty Start Date End Date Sky Pickens MD [address] [facility] [address] [place] [address] PCP - General Family Medicine 08/05/19 Fouzia Wyatt MD [address] [facility] [address] [place] [address] Consulting Physician Internal Medicine-Nephrology 01/18/19 Filippo De Guzman MD [address] [facility] [place] [address] Internal Medicine-Cardiovascular Disease 11/11/21 documented as of this encounter
[2024-09-16 18:34] LABS: Basophils # 0.1 K/mm3 (0-0.2); Basophils % 0.9 % (0.1-2.0); Eosinophils # 0.4 Kmm3 (0.0-0.4); Eosinophils % 5.5 % (0.1-12.0); Hematocrit 41.1 % (37.0-47.0); Hemoglobin 12.9 g/dL (12.2-16.2); Immature Granulocytes # 0.03 10^3uL; Immature Granulocytes % 0.5 %; Lymphocytes # 2.6 K/mm3 (0.7-4.5); Lymphocytes % 39.4 % (10-50); Mean Corpuscular HGB Conc 31.4 g/dL (31.8-35.4); Mean Corpuscular Volume 98.8 fl (81-99); Mean Platelet Volume 11.3 fl (7.4-10.4); Monocytes # 0.5 K/mm3 (0.1-1.0); Monocytes % 7.6 % (1.7-9.3); Neutrophils % 46.1 % (37.0-80.0); Nucleated Red Blood Cells # 0 10^3/uL; Nucleated Red Blood Cells % 0 %; Platelet Count 303 K/mm3 (142-424); Red Blood Count 4.16 M/mm3 (4.20-5.40); Red Cell Distribution Width 17.2 % (11.5-17.5); Red Cell Distribution Width-SD 61.5 fL; White Blood Count 6.5 K/mm3 (4.8-10.8)
[2024-09-16 19:44] LABS: Alanine Aminotransferase 21 U/L (12-78); Albumin Level 3.8 g/dl (3.5-5.0); Albumin/Globulin Ratio 1.4 (1.1-1.8); Alkaline Phosphatase 79 U/L (38-126); Anion Gap 11.9 mEq/L (5-15); Aspartate Amino Transferase 26 U/L (14-36); Bilirubin,Total 0.7 mg/dl (0.2-1.3); Blood Urea Nitrogen 24 mg/dl (7-17); Calcium 9.5 mg/dl (8.4-10.2); Carbon Dioxide 30 mmol/L (22.0-30.0); Chloride 100 mmol/L (98-107); Chol/HDL Ratio 4.9 (1-3.5); Cholesterol 171 mg/dl (140-200); Estimated Glomerular Filt Rate 29 ml/min (>60); GFR (African American) 35 ML/MIN (>60); Globulin 2.7 g/dL (1.3-3.2); Glucose 122 mg/dl (74-100); HDL Cholesterol 35 mg/dl (40-60); Potassium 4.9 mmoL/L (3.5-5.1); Sodium 137 mmol/L (136-145); Total Protein,Serum 6.5 g/dl (6.3-8.2); Triglycerides 296 mg/dl (30-150); VLDL Cholesterol 59 mg/dL (0-40)
[2024-09-16 20:25] LABS: Thyroid Stimulating Hormone 5.23 uIU/mL (0.465-4.68)
--- OUTSIDE RECORDS SUMMARY | 2024-09-17 10:45 | XMS_ITS | Clinical Summary ---
Author Organization [facility] Address [address] [place] [address] Phone Care Team Providers Care Gate Manager Name Role Phone Fouzia Wyatt MD Unavailable [phone] Sky Pickens MD Primary Care Provider [phone] Filippo De Guzman MD Unavailable [phone] Allergies Active Allergy Reactions Criticality Noted Date Comments Moxifloxacin Hives 11/20/2012 Quinidine Hives 12/02/2010 Verapamil Rash 12/02/2010 Medications amitriptyline (ELAVIL) 100 mg tablet Take 100 mg by mouth nightly. Active Multivitamins-M inerals-Lutein Oral Tablet Take by mouth daily. Active CALCIUM CARBONATE/VITAM IN D3 (CALTRATE 600 + D ORAL) Take 2 Tabs by mouth daily. Active bisoprolol-hydr ochlorothiazide (ZIAC) 10-6.25 mg per tablet Take 1 Tab by mouth daily. Active aspirin 325 mg Take 325 mg by mouth daily. Active rosuvastatin (CRESTOR) 10 mg Oral Tablet Take 10 mg by mouth daily. Active ergocalciferol (DRISDOL) 50,000 unit Oral Capsule Take by mouth once a week. Active magnesium hydroxide (MILK OF MAGNESIA) 400 mg/5 mL Oral Suspension Take 5 mL by mouth 2 times daily as needed. Active bisacodyl (DULCOLAX) 5 mg Oral Tablet, Delayed Release (E.C.) Take 5 mg by mouth daily as needed for Constipation. Active HYDROcodone-joni taminophen (NORCO) 5-325 mg Oral Tablet Take 1 Tablet by mouth 2 times daily as needed. Active LORazepam (ATIVAN) 0.5 mg Oral Tablet 0.5 mg. 4 Active gabapentin (NEURONTIN) 300 mg Oral Capsule 300 mg 3 times daily. 4 Active oxyCODONE-aceta minophen (PERCOCET) 5-325 mg Oral TabletIndicatio ns:S/P repair of recurrent ventral hernia Take 1 Tablet by mouth every 6 hours. 30 Tablet 4 Active Additional Information Patient not taking.Reason: Therapy Completed, Reported on 07/08/2024 losartan (COZAAR) 100 mg Oral Tablet 100 mg. 4 Active hydrALAZINE (APRESOLINE) 100 mg Oral Tablet 100 mg. 4 Active SYNTHROID 125 mcg Oral Tablet 4 Active torsemide (DEMADEX) 20 mg Oral Tablet Take 20 mg by mouth. 5 Active potassium chloride (KLOR-CON M) 20 mEq Oral Tab Sust.Rel. Particle/Lena l Take 20 mEq by mouth daily. 5 Active nitroGLYCERIN (NITROSTAT) 0.4 mg SL Tablet, Sublingual Place 0.4 mg under the tongue every 5 minutes as needed. 5 Active Active Problems Problem Noted Date Diagnosed Date Wound dehiscence 10/02/2023 Assessment & Plan (03/20/2024 1:56 PM EST): Abnormal CT of the abdomen 07/14/2023 Abdominal wall bulge 06/09/2023 Periumbilical pain 06/09/2023 Gout 06/15/2022 Stage 3a chronic kidney disease 08/05/2019 Primary osteoarthritis involving multiple joints 12/04/2016 Overview (12/05/2016): As of 12/05/16: -Bilateral TKR -Lumbar Fusion X2 -Maintained on PRN Opioids / Bowel Prep / Voltarin Gel / Elavil - Calcium and Vit D3 Hyperlipidemia 12/03/2016 Incarcerated incisional hernia 11/29/2016 Overview (12/05/2016): As of 12/05/16: -Repaired 11/29/16, now with postoperative pain -CT abdomen 12/03/16: fluid collection above mesh concerning for seroma/hematoma vs. early abscess -Continues to be afebrile Postoperative hypothyroidism 11/17/2016 Overview (12/05/2016): As of 12/05/16: -thyroidectomy 1976 -No change in Synthroid Spondylolisthesis, lumbar region 05/13/2016 Lumbar stenosis with neurogenic claudication 07/2015 Essential hypertension 06/13/2014 Overview (12/05/2016): As of 12/05/16: -BP as high as 190 systolic PAF (paroxysmal atrial fibrillation) 06/13/2014 Overview (12/05/2016): 12/05/16: -Currently SR -No Afib events for about 10 years -Not on anticoagulation. -Last ECHO 11/2012 with EF 50-55%, mild LAE, mild TR. -VSG2GE4-[id number] score 3 (HTN, age, sex). -Follows with Dr. Trevino. Encounters Date Type Department Care Team Description 07/23/2024 Results [place] [address] Gail Ramey APRN ECHOCARDIOGRAM COMPLETE W DOPPLER AND COLOR FLOW MAPPING, NM MYOCARDIAL PERFUSION SPECT STRESS AND REST 07/22/2024 6:55 AM EDT - 07/22/2024 11:59 PM EDT Hospital Encounter [facility] [address] [place] [address] [place] [address] Gail Ramey APRN Dyspnea on exertion; Chest pain, unspecified type Discharge Disposition: Home or Self Care 07/22/2024 6:54 AM EDT Hospital Encounter [facility] [address] [place] [address] [place] [id number] Gail Ramey APRN Dyspnea on exertion; Chest pain, unspecified type Discharge Disposition: Home or Self Care 07/22/2024 6:54 AM EDT Hospital Encounter [facility] ECHO [address] [place] [address] [place] [id number] Gail Ramey APRN Swelling of lower extremity; Dyspnea on exertion Discharge Disposition: Home or Self Care 07/08/2024 3:00 PM EDT [place] [address] Gail Ramey APRN Chest pain, unspecified type (Primary Dx); Swelling of lower extremity; Dyspnea on exertion; PAF (paroxysmal atrial fibrillation) (HCC); Pure hypercholesterolemia from Last 3 Months Immunizations Immunization Administration Dates Next Due Pneumococcal Conjugate Vaccine 13 Valent 017 Surgical History Surgery Date Site/Laterality Comments HYSTERECTOMY THYROID SURGERY 04/03/1977 - 04/02/1978 SHOULDER ARTHROSCOPY 04/18/2012 Left LEFT SHOULDER ARTHROSCOPY DECOMPRESSION ROTATOR CUFF REPAIR; Surgeon: Juan Goff MD; Location: ED MAIN OR; Service: Orthopedics Medical devices from this surgery are in the Medical Devices section. LUMBAR FUSION 08/04/2015 N/A L3/4 ANTERIOR LUMBAR INTERBODY FUSION with BONE MORPHOGENIC PROTEIN L3/4 L4/5 L5/S1 POSTERIOR FUSION PEDICLE SCREWS LAMINECTOMY ILIAC CREST BONE GRAFT repair of dura tear ; Surgeon: Juan Shen MD; Location: [facility] MAIN OR; Service: Spine Medical devices from this surgery are in the Medical Devices section. BACK SURGERY x 3: 1992, 1992 and 2013, 11/29/2018 KNEE SURGERY bilat total knees LUMBAR FUSION 05/12/2016 N/A L4-5 L5-S1 REVISION LAMINECTOMY POSTERIOR FUSION PEDICLE SCREWS WITH ILIAC CREST BONE GRAFT ; Surgeon: Juan Shen MD; Location: [facility] MAIN OR; Service: Spine Medical devices from this surgery are in the Medical Devices section. LUMBAR DISC SURGERY 05/12/2016 Surgeon: Juan Shen MD; Location: [facility] MAIN OR; Service: Spine Medical devices from this surgery are in the Medical Devices section. BONE GRAFT 05/12/2016 Surgeon: Juan Shen MD; Location: [facility] MAIN OR; Service: Spine Medical devices from this surgery are in the Medical Devices section. VENTRAL HERNIA REPAIR 11/29/2016 N/A DAVINCI INCISIONAL INCARCERATED HERNIA REPAIR WITH MESH ; Surgeon: Lakhwinder Dow MD; Location: ED MAIN OR; Service: General Medical devices from this surgery are in the Medical Devices section. COLONOSCOPY 12/28/2017 CARDIAC CATHETERIZATION VENTRAL HERNIA REPAIR 09/04/2023 N/A Massive incarcerated incisional hernia repair with 20 by 25 mesh, lysis of dense adhesions; Surgeon: Lakhwinder Dow MD; Location: [facility] MAIN OR; Service: General Medical devices from this surgery are in the Medical Devices section. Medical History Medical History Date Comments Pneumonia 2006 Hypertension Hyperlipidemia Other and unspecified angina pectoris with A fib Arthritis hands back ankle Osteoarthritis Thyroid disease thyroidectomy 19 76 Depression Urinary tract infection Bladder spasms Cancer (HCC) skin Bronchitis 07/2015 treated UTI (urinary tract infection) 2015 Cardiac dysrhythmia, unspecified Echo 11/21/2012: LVEF 50-55%. Mild LAD (3.7 cms on report). RVSP 33 mmHg Osteoporosis Neuromuscular disorder (HCC) ner ve damage in R leg slight foot drop Postoperative nausea and vomiting patch helps Chronic kidney disease Umbilical hernia Family History Medical History Relation Name Comments High Blood Pressure Father High Cholesterol Father High Blood Pressure Mother High Cholesterol Mother Cancer Sister 1 Mekeral cell Heart Surgery Sister 4 CABG x 5 Anesth Problems Neg Hx Relation Name Status Comments Father Mother Sister 1 Sister 2 Sister 3 Sister 4 Alive Social History Tobacco Use Types Packs/Day Years Used Date Smoking Tobacco: Never Smokeless Tobacco: Never Tobacco Cessation:Counseling Given: Not Answered Alcohol Use Standard Drinks/Week Comments No 0 (1 standard drink = 0.6 oz pur e alcohol) [facility] Utilities Answer Date Recorded In the [...] 0 10/03/2023 [facility] Occupat [facility] - Occupational Stress [...] to get more. Never true 10/03[facility]2023 [facility] IP Transportation Answer D ate Recorded In [...] on file Sexual Orientation Not on file Obstetrics History Last Filed Vital Signs Vital Sign Reading Time Taken Comments Blood Pressure 127/63 07/08/2024 2:59 PM EDT Pulse 86 07/08/2024 2:59 PM EDT Temperature 36.6 C (97.9 F) 01/31/2024 3:29 PM EDT Respiratory Rate 17 10/03/2023 8:39 AM EDT Oxygen Saturation 94% 10/03/2023 8:39 AM EDT Inhaled Oxygen Concentration - - Weight 112.9 kg (249 lb) 07/08/2024 2:59 PM EDT Height 157.5 cm (5' 2 ) 07/08/2024 2:59 PM EDT Body Mass Index 45.54 07/08/2024 2:59 PM EDT Plan of Treatment Upcoming Encounters Date Type Department Care Team (Late st Contact Info) Description 11/11/2024 9:15 AM EDT Office Visit [facility] [address] [address] Filippo De Guzman MD [address] [place] [address] 12/10/2024 10:15 AM EDT Office Visit [facility] Nephrology Drums [address] [place] [address] Fouzia Wyatt MD [address] [place] [address] Health Maintenance Due Date Last Done Comments Wellness Exam Medicare 1953 Hepatitis C Screening 07/30/1967 DTaP/TDaP/Td (1 - Tdap) 1968 Cologuard 1994 FIT 1994 Sigmoidoscopy 1994 Virtual Colonography 1994 Zoster (1 of 2) 07/30/1999 Colon Cancer Screening 12/28/2018 Colonoscopy 12/28/2018 12/28/2017 Pneumococcal Vaccine 50+ (3 of 3 - PCV20 or PCV21) 01/22/2023 01/22/2018, 05/12/2016, 01/13/2006 COVID-19 Vaccine ( season) 2023 01/26/2022, 10/13/2021, 03/04/2021, Additional history exists RSV or 60+ (1 - 1-dose 75+ series) 2024 Bone Density Screening Completed 06/02/2015 Influenza Vaccine Completed 01/29/2024, , 04/29/2022, Additional history exists Hepatitis B Vaccine Aged Out No longe r eligible based on patient's age to complete this topic Meningococcal B Vaccine Aged Out No l onger eligible based on patient's age to complete this topic Medical Devices Implanted Type Area Lead Manufacturing Engineer Device Identifier Shelf Expiration Date Model / Serial / Lot Knees-Hardware Hardware-Should er [place] [employer] 5.5 With #2 Hi-Fi Suture - [id number] Implanted:Qty: 1 on 04/18/2012 by Juan Goff MD at [facility] Left: Shoulder CONMED:LINVATEC 03/18/2013 [id number] / / [id number] Scrw Self-Drilling Fortex 7.5 X 30mm - [id number] Implanted:Qty: 1 on 08/04/2015 by Juan Shen MD at [facility] N/A: Spine Lumbar PARADIGM BIODEVICES [id number] / / Kwame Radius Continuous 5.5mm X 35mm - [id number] Implanted:Qty: 1 on 08/04/2015 [facility]: Spine Lumbar PARADIGM BIODEVICES [id number] / / Kit Infuse Extra Small (Bmp) - [id number] Implanted:Qty: 1 on 08/04/2015 by Juan Shen MD at [facility]: Spine Lumbar MEDTRONIC:SOFAM OR DANEK 03/02/2016 [id number] / / [id number] Plate Lumber Irix-A [id number] 13mm - [id number] Implanted:Qty: 1 on 08/04/2015 by Juan Shen MD at [facility]: Spine Lumbar PARADIGM BIODEVICES 09/02/2019 [id number] / / [id number] Bone Cancellous Chips 15cc - [id number] Implanted:Qty: 1 on 08/04/2015 by Juan Shen MD at [facility]: Spine Lumbar UNKNOWN 11/25/2019 [id number] / [id number] / Screw Selfdrilling 5.5x25mm - [id number] Implanted:Qty: 2 on 08/04/2015 by Juan Shen MD at [facility]: Spine Lumbar CHOICE SPINE LP [id number] / / Dura Guard Repair Patch 4 X 4 Cm [id number] - [id number] Implanted:Qty: 1 on 08/04/2015 by Juan Shen MD at [facility]: Spine Lumbar SYNOVIS LIFE TECH:SURG INNOV 12/27/2019 [id number] / / [id number] Infuse Kit-Small (Bmp) - [id number] Implanted:Qty: 1 on 08/04/2015 by Juan Shen MD at [facility]: Spine Lumbar MEDTRONIC:SOFAM OR DANEK 12/31/2016 [id number] / / [id number] Cap Fortex - [id number] Implanted:Qty: 2 on 08/04/2015 by Juan Shen MD at [facility] NA: Spine Lumbar PARADIGM BIODEVICES [id number] / / Screw Self-Drilling Fortex 6.5 X 40mm - [id number] Implanted:Qty: 1 on 08/04/2015 by Juan Shen MD at [facility] NA: Spine Lumbar PARADIGM BIODEVICES [id number] / / Kit Infuse Xx Small - [id number] Implanted:Qty: 1 on 05/12/2016 by Juan Shen MD at [facility] NA: Spine Lumbar MEDTRONIC:SOFAM OR DANEK 03/02/2017 [id number] / / [id number] Screw Poly 6.5x35mm - [id number] Implanted:Qty: 2 on 05/12/2016 [facility]: Spine Lumbar MEDTRONIC:SOFAM OR DANEK [id number] / / Screw Poly 5.5x40mm - [id number] Implanted:Qty: 1 on 05/12/2016 by Juan Shen MD at [facility] NA: Spine Lumbar MEDTRONIC:SOFAM OR DANEK [id number] / / Set Screw Break Off - [id number] Implanted:Qty: 3 on 05/12/2016 [facility]: Spine Lumbar MEDTRONIC:SOFAM OR DANEK [id number] / / Kwame Pre-Bent 60mm - [id number] Implanted:Qty: 1 on 05/12/2016 by Juan Shen MD at [facility] NA: Spine Lumbar MEDTRONIC:SOFAM OR DANEK [id number] / / Patch Bard Ventralight St W/Echo Ps Tm 7 X 9 (17.8cm X 22. - [id number] Implanted:Qty: 1 on 11/29/2016 by Lakhwinder Dow MD at [facility] NA: Abdomen CR BARD:JUVEOL 11/28/2017 [id number] / / [id number] Device Fixation Strap Absorbable 25 Straps Secure Strap 5mm - [id number] Implanted:Qty: 1 on 11/29/2016 by Lakhwinder Dow MD at [facility] N/A: Abdomen J&J:ETHICON:END O-SURGERY 10/01/2017 [id number] / / [id number] Mesh Surgical Pasix 0ahl41ve Oval Poly St Absorbable - [id number] Implanted:Qty: 1 on 09/04/2023 by Lakhwinder Dow MD at [facility] N/A: Abdomen CR BARD:DAVOL 11/28/2024 [id number] / / [id number] Procedures Procedure Name Priority Date/Time Associated Diagnosis Comments NM MYOCARDIAL PERFUSION SPECT STRESS AND REST Routine 07/22/2024 10:43 AM EDT Dyspnea on exertion Chest pain, unspecified type ST STRESS TEST LEXISCAN Routine 07/22/2024 9:51 AM EDT Dyspnea on exertion Chest pain, unspecified type EC ECHOCARDIOGRAM COMPLETE W DOPPLER AND COLOR FLOW MAPPING Routine 07/22/2024 7:53 AM EDT Swelling of lower extremity Dyspnea on exertion GMED COLONOSCOPY Routine 12/28/2017 10:3 0 AM EDT DX BONE DENSITY AXIAL SKELETON Routine 06/02/2015 1:55 PM EST Lumbar degenerative disc disease Osteopenia from Last 3 Months or Most Recently Relevant to Health Maintenance Results * NM MYOCARDIAL PERFUSION SPECT STRESS [...] future provided all risk factors are treated. us Gail Ramey LADLE PULLER IMG NM CARDIAC ORDERABLES Gabriella l Result * ST STRESS TEST LEXISCAN (07/22/2024 9:51 AM EDT) Anatomical Region Laterality Modality Cardiac Stress T esting 07/22/2024 9:09 AM EDT Impressions 07/22/2024 12:[address] 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 Test Date: 2024-07-22 Pat Name: PHAM MARQUEZ Department: DEPID Room: Gender: Female Aerial Gunner Superintendent: Leona Sorensen RN : 1950 Requested By: GAIL RAMEY Order Number: [id number] Reading MD: Kevin Plummer MD Interpretive Statements [...] 07-22-2024 12:16:29 EDT by Kevin Plummer MD us Gail Ramey LADLE PULLER IMG STRESS ORDERABLES Final Re sult * EC ECHOCARDIOGRAM COMPLETE W DOPPLER AND [...] * Right ventricular systolic function is reduced. us Gail Ramey APRN IMG ECHO ORDERABLES Final Resu lt * GMED COLONOSCOPY (12/28/2017 10:30 AM EDT) 12/28/2017 10:3 0 AM EDT Impressions [facility] - 12/28/2017 1:48 PM EDT Mild diverticulosis of the colon. Grade 2 internal hemorrhoids. Plan: 1) recall colon in 3 yrs, 2) high fiber diet, 3) office f/u in 6 months. This section is an excerpt of the full report. us Miguel Dailey MD GI PROCEDURE ORDERABLES Fin al Result [facility] [address] [place] [address] * DX BONE DENSITY AXIAL SKELETON (06/02/2015 1:55 PM EST) Anatomical Region Laterality Modality Dexa Scan 06/02/2015 Narrative 06/03/2015 10:31 AM EST Indication: The patient is a female age 65 or older who requires a bone density assessment. Study was performed on Oja.la 3.2. Bone Density: Region BMD T-score Z-score AP Spine (L1, L3, L4) 1.146 0.8 2.7 Femoral Neck (Left) 0.707 -1.3 0.3 Total Hip (Left) 0.979 0.3 1.6 Femoral Neck (Right) 0.782 -0.6 0.9 Total Hip (Right) 0.993 0.4 1.7 1/3 Radius (Left) 0.740 0.8 2.5 World Health Organization criteria for BMD interpretation classify patients as: Normal (T-score at or above -1.0), Low Bone Density (T-score between -1.0 and -2.5), or Osteoporotic (T-score at or below -2.5). T Scores are reported in Postmenopausal women and in men age 50 and older. Z-scores are reported in females prior to menopause and in males younger than age 50. 10-year Fracture Risk(1): Major Osteoporotic Fracture 14% Hip Fracture 0.8% Reported Risk Factors: [place] (), Neck BMD=0.707, BMI=43.5, parental fracture (1) FRAX(R) Version 3.01. Fracture probability calculated for an untreated patient. Fracture probability may be lower if the patient has received treatment. Clinical Information Provided by Patient: Parent has had a hip fracture. Has taken a prescription medication that prevents/treats osteoporosis in the last year. Has used the following medications: Calcium, Vitamin D, Diuretic, Thyroid medication Has the following medical conditions: Back pain Patient maximum height was 62. Menopause Age: 39 Interpretation: Bone mineral density is in the low bone density range. The spine portion of the study is limited by hypertrophic changes and body habitus. Medical evaluation for secondary causes of low bone mineral density may be appropriate. A minimum of two years may be required between bone density studies due to inherent testing precision limitations. Intervals between BMD testing should be determined according to each patient's clinical status: typically one year after initiation or change in therapy is appropriate, with longer intervals once therapeutic effect is established. Reported by: Chelle Junior PA-C,CCD on 06/02/2015 2:26:00 PM. 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 anation Power of Stores Clerk 12/06/2016 6:39 PM 12/03/16 Advance Directives/DNR 12/04/2016 8:56 AM Advance Directives/DNR 08/04/2015 7:48 PM * Full Code (Latest Code Status on File) Date Activated Date Inactivated Comments 09/04/2023 10:52 AM 09/07/2023 6:11 PM * Full Code Date Activated Date Inactivated Comments 12/03/2016 8:50 PM 12/05/2016 6:37 PM * Full Code Date Activated Date Inactivated Comments 05/12/2016 6:32 PM 05/14/2016 4:20 PM * Full Code Date Activated Date Inactivated Comments 08/04/2015 4:22 PM 08/07/2015 10:00 PM Care Teams Gate Manager Relationship Specialty Start Date End Date Sky Pickens MD [address] [place] [phone] PCP - General Family Medicine 08/05/19 Fouzia Wyatt MD [address] [place] [phone] Consulting Physician Internal Medicine-Nephrology 01/18/19 Filippo De Guzman MD [address] [place] [phone] Internal Medicine-Cardiovascular Disease 11/11/21
--- OUTSIDE RECORDS SUMMARY | 2024-09-17 10:45 | XMS_ITS | Clinical Summary ---
Author Organization [facility] Address [address] [place] [address] Care Team Providers Care Construction Driller Name Role Phone Jose R Prado MD, Harold Primary Care Provider U zaailalexandra Allergies Active Allergy Reactions Criticality Noted Date Comments Moxifloxacin 05/28/2015 Quinidine 05/28/2015 Verapamil 05/28/2015 Medications DULERA 200-5 MCG/ACT inhaler 05/27/2015 Act prasanna cefUROXime (CEFTIN) 500 MG tablet 05/25/2015 Active bisoprolol-hydro chlorothiazide (ZIAC) 10-6.25 MG per tablet 05/15/2015 Activ e moexipril (UNIVASC) 15 MG tablet 05/15/2015 Active amitriptyline (ELAVIL) 100 MG tablet 05/15/2015 Active SYNTHROID 112 MCG tablet 05/15/2015 Active terbinafine (LAMISIL) 250 MG tablet 05/15/2015 Active HYDROcodone-acet aminophen (NORCO) 7.5-325 MG per tablet 05/14/2015 Activ e LORazepam (ATIVAN) 1 MG tablet 05/07/2015 Active aspirin 325 MG tablet Take 325 mg by mouth daily Active Multiple Vitamins-Mineral s (CENTRUM SILVER PO) Take by mouth Active estradiol (CLIMARA) 0.05 MG/24HR Place 1 patch onto the skin once a week Active rosuvastatin (CRESTOR) 10 MG tablet Take 10 mg by mouth daily Active Family History Medical History Relation Name Comments Sudden Brother Heart Disease Father Heart Disease Mother Cancer Sister Diabetes Sister Relation Name Status Comments Brother Father Mother Sister Social History Tobacco Use Types Packs/Day Years Used Date Smoking Tobacco: Never Alcohol Use Standard Drinks/Week Comments No 0 (1 standard drink = 0.6 oz pur e alcohol) Comments Unknown Sex and Gender Information Value Date Recorded Sex Assigned at Not on file Legal Sex Female 10:20 AM EST Gender Identity Not on file Sexual Orientation Not on file Last Filed Vital Signs Vital Sign Reading Time Taken Comments Blood Pressure 138/80 05/28/2015 1:34 PM EST Pulse - - Temperature - - Respiratory Rate - - Oxygen Saturation - - Inhaled Oxygen Concentration - - Weight 104.3 kg (230 lb) 05/28/2015 1:34 PM EST Height 157.5 cm (5' 2 ) 05/28/2015 1:34 PM EST Body Mass Index 42.07 05/28/2015 1:34 PM EST Plan of Treatment Not on file Insurance MEDICARE Care Teams Construction Driller Relationship Specialty Start Date End Date Malvin Odell MD [address] [place] [address] PCP - General Family Medicine 05/28/15
--- OUTSIDE RECORDS SUMMARY | 2024-09-17 10:45 | XMS_ITS | Clinical Summary ---
Author Organization [facility] Address [address] [place] [address] Care Team Providers Care Hold Worker Name Role Phone Sky Pickens MD Primary Care Provider Source Comments This information has been disclosed to you from confidential records protectedfrom disclosure by state law. You shall make no further disclosure of thisinformation without the specific, written, and informed release of theindividual to whom it pertains, or as otherwise permitted by law. A generalauthorization for the release of medical or other information is not sufficientfor the purposes of therelease of HIV test results or diagnoses. [id number] Allergies Active Allergy Reactions Criticality Noted Date Comments Moxifloxacin Other (See Comments) Low 05/28/2015 Hallucinations Quinidine Anaphylaxis High 05/28/2015 Verapamil Hives Low 05/28/2015 Medications LORazepam (ATIVAN) 1 MG tabletIndication s:Pre-operative general physical examination,Scol iosis, unspecified scoliosis type, unspecified spinal region Take 1 mg by mouth every 8 hours as needed. Active levothyroxine (SYNTHROID) 112 MCG tabletIndication s:Pre-operative general physical examination,Scol iosis, unspecified scoliosis type, unspecified spinal region Take 112 mcg by mouth every morning before breakfast. 05/15/2015 Active moexipril (UNIVASC) 15 MG tabletIndication s:Pre-operative general physical examination,Scol iosis, unspecified scoliosis type, unspecified spinal region Take 15 mg by mouth daily. 05/15/2015 Active bisoprolol-hydro chlorothiazide (ZIAC) 10-6.25 mg per tabletIndication s:Pre-operative general physical examination,Scol iosis, unspecified scoliosis type, unspecified spinal region 02/05/2018 Activ e amitriptyline (ELAVIL) 100 MG tabletIndication s:Pre-operative general physical examination,Scol iosis, unspecified scoliosis type, unspecified spinal region Take 100 mg by mouth at bedtime. 02/05/2018 Active gabapentin (NEURONTIN) 300 MG capsuleIndicatio ns:Pre-operative general physical examination,Scol iosis, unspecified scoliosis type, unspecified spinal region Take 300 mg by mouth 3 times a day. 02/24/2018 Active estradiol (CLIMARA) 0.1 mg/24 hr PTWKIndications: Pre-operative general physical examination,Scol iosis, unspecified scoliosis type, unspecified spinal region 02/05/2018 Activ e bisacodyl (DULCOLAX) 5 mg EC tabletIndication s:Pre-operative general physical examination,Scol iosis, unspecified scoliosis type, unspecified spinal region Take by mouth. Active magnesium hydroxide (MILK OF MAGNESIA) 400 mg/5 mL SuspIndications: Pre-operative general physical examination,Scol iosis, unspecified scoliosis type, unspecified spinal region Take by mouth. Active multivitamin-min erals-lutein (CENTRUM, CERO-SHANITA) TabIndications:P re-operative general physical examination,Scol iosis, unspecified scoliosis type, unspecified spinal region Take by mouth. Active rosuvastatin (CRESTOR) 10 MG tablet 03/08/2018 Active ergocalciferol (VITAMIN D2) 50,000 unit capsule Take 50,000 Units by mouth once a week. Active methocarbamol (ROBAXIN) 500 MG tabletIndication s:Spondylolisthe sis of lumbar region Take 1 tablet (500 mg total) by mouth 3 times a day. 60 tablet 1 12/01/2018 4:00 PM EDT 12/01/2018 Active senna (SENNA) 8.6 mg tabletIndication s:Spondylolisthe sis of lumbar region Take 1 tablet by mouth daily. 30 tablet 12/01/2018 4:00 PM EDT 12/01/2018 Active Active Problems Problem Noted Date Diagnosed Date Spondylolisthesis of lumbar region 03/21/2018 Overview (03/21/2018): Added automatically from request for surgery [id number] Thyroid disease PAF (paroxysmal atrial fibrillation) Hypertension High cholesterol Spondylolisthesis PONV (postoperative nausea and vomiting) Family History Medical History Relation Comments Coronary artery disease Father Heart failure Father Coronary artery disease Mother Heart failure Mother Anesthesia problems Neg Hx Relation Status Comments Father Mother Social History Tobacco Use Types Packs/Day Years Used Date Smoking Tobacco: Never Smokeless Tobacco: Never Alcohol Use Standard Drinks/Week Comments No 0 (1 standard drink = 0.6 oz pur e alcohol) PHQ-2 Answer Date Recorded PHQ-2 Score 0 01/13/2019 Comments No Sex and Gender Information Value Date Recorded Sex Assigned at Not on file Legal Sex Female 4:17 PM EST Gender Identity Not on file Sexual Orientation Not on file Last Filed Vital Signs Vital Sign Reading Time Taken Comments Blood Pressure 123/80 01/09/2019 4:06 PM EDT Pulse 101 01/09/2019 4:06 PM EDT Temperature 37.6 C (99.7 F) 12/01/2018 9:09 AM EDT Respiratory Rate 16 01/09/2019 4:06 PM EDT Oxygen Saturation 94% 01/09/2019 4:06 PM EDT Inhaled Oxygen Concentration 94% 01/09/2019 4 :06 PM EDT Weight 97.5 kg (215 lb) 01/09/2019 4:06 PM EDT Height 157.5 cm (5' 2 ) 01/09/2019 4:06 PM EDT Body Mass Index 39.32 01/09/2019 4:06 PM EDT Plan of Treatment Not on file Medical Devices Implanted Type Area Care Program Resident Device Identifier Shelf Expiration Date Model / Serial / Lot Graft Bone Infuse Rhbmp-2 Bovine Collagen Small L23 Mm Od14 Mm 2.8 Ml Spine Absorbable Sponge Sterile Water Syringe Needle Lumbar Taper Fusion Device - [id number] Implanted:Qty: 1 on 11/29/2018 by Gilda Malloy MD at [facility] Main Graft N/A: Back [employer] SOFAMOR DANEK 12/01/2020 [id number] / [id number] / [id number] Graft Bone [place] Demineralized Bone Matrix Large Defect 10 Ml Orthoblend Jar - [id number] Implanted:Qty: 1 on 11/29/2018 by Gilda Malloy MD at [facility] Main Graft N/A: Back [employer] SO[employer]AM[employer]ANEK 06/29/2020 [id number] / [id number] / [id number] Graft Bone Magnifuse Demineralized Bone Matrix L10 Cm X W1.75 Cm - [id number] Implanted:Qty: 1 on 11/29/2018 by Gilda Malloy MD at [facility] Main Graft N/A: Back [employer] SO[employer]ANEK 05/23/2020 [id number] / [id number] / [id number] Gft Bn Canc 15ml 1-10mm Frzdr - [id number] Implanted:Qty: 1 on 11/29/2018 by Gilda Malloy MD at [facility] Main Graft N/A: Back [employer] 06/08/2023 [id number] / [id number] / [id number] Kwame Spinal Titanium Curve L100 Mm Od5.5 Mm Nonsterile - [id number] Implanted:Qty: 2 on 11/29/2018 by Gilda Malloy MD at [facility] Main Orthopedic N/A: Back [employer]ANEK [id number] / [id number] / Screw Bone Cocr L40 Mm Od9.5 Mm Spine Multiaxial 5.5 Mm Kwame - [id number] Implanted:Qty: 1 on 11/29/2018 by Gilda Malloy MD at [facility] Main Screw N/A: Back [employer] [id number] / [id number] / Screw Set Cd Horizon Titanium Spinal Break Off Nonsterile 5.5 Mm Kwame - [id number] Implanted:Qty: 10 on 11/29/2018 by Gilda Malloy MD at [facility] Main Screw N/A: Back [employer]K [id number] / [id number] / Screw Bone Solera Cd Horizon Cocr L50 Mm Od5.5 Mm Spine Multiaxial Nonsterile 5.5 Mm Kwame - [id number] Implanted:Qty: 2 on 11/29/2018 by Gilda Malloy MD at [facility] Main Screw N/A: Back [employer] [id number] / [id number] / Screw Bone Solera Cd Horizon Cocr L40 Mm Od6.5 Mm Spine Multiaxial Nonsterile 5.5 Mm Kwame - [id number] Implanted:Qty: 1 on 11/29/2018 by Gilda Malloy MD at [facility] Main Screw N/A: Back [employer] [id number] / [id number] / Screw Bone Solera Cd Horizon Cocr L40 Mm Od7.5 Mm Spine Multiaxial Nonsterile 5.5 Mm Kwame - [id number] Implanted:Qty: 3 on 11/29/2018 by Gilda Malloy MD at [facility] Main Screw N/A: Back [employer] [id number] / [id number] / Screw Bone Cocr L35 Mm Od8.5 Mm Spine Multiaxial 5.5 Mm Kwame - [id number] Implanted:Qty: 1 on 11/29/2018 by Gilda Malloy MD at [facility] Main Screw N/A: Back [employer] [id number] / [id number] / Solera 5.5/6.0 Long Mas: 8.5x80mm Implanted:Qty: 2 on 11/29/2018 by Gilda Malloy MD at [facility] Main N/A: Back [employer] [id number] / [id number] / Capstone Spinal System 6mm X 22mm Implanted:Qty: 2 on 11/29/2018 by Gilda Malloy MD at [facility] Main N/A: Back [employer] SOF[employer]ANEK 04/06/2026 [id number] / [id number] / [id number] Explanted Type Area Care Program Resident Device Identifier Shelf Expiration Date Model / Serial / Lot Screw Bone Solera Cd Horizon Cocr L40 Mm Od8.5 Mm Spine Multiaxial Nonsterile 5.5 Mm Kwame - [id number] Explanted:Qty: 1 on 11/29/2018 at [facility] Main Screw N/A: Back [employer] STACY WRAY [id number] / [id number] / Description:Wrong Size Insurance MEDICARE A AND B Member Subscriber Plan / Payer (Ef fective 2014-Present) Name:Pham Marquez Relation to Subscriber:Self Name:Pham Marquez Payer ID:[id number] Group ID:Not on file Type:Medicare Address: [address] MEDICARE SUPPLEMENT Advance Directives For more information, please contact: [phone] * Full Code (Latest Code Status on File) Date Activated Date Inactivated Comments 11/29/2018 9:53 PM 12/01/2018 8:26 PM Care Teams Hold Worker Relationship Specialty Start Date End Date Sky Pickens MD [address] [place] [address] PCP - General Family Medicine 09/26/18
--- OUTSIDE RECORDS SUMMARY | 2024-09-17 10:45 | XMS_ITS | Encounter Summary ---
Author Organization [facility] [place] [address] Care Team Providers Care Twister In Name Role Phone Fouzia Wyatt MD Unavailable [phone] Sky Pickens MD Primary Care Provider [phone] Filippo De Guzman MD Unavailable [phone] Reason for Visit * Reason Onset Date Comments Results 07/23/2024 Called and left voicemail about her stress test was normal there was no evidence of decreased blood flow or concern.Also let her know that her echocardiogram was normal as well her heart function is strong no evidence of heart failure. Would continue medications as they are along with good blood pressure control. Okay to keep appointment as scheduled unless she has further symptoms she wants to discuss Encounter Details Date Type Department Care Team (Latest Contact Info) Description 07/23/2024 Results Follow-Up [facility] [address] [id number] Gail Ramey, [address] [place] [address] EC ECHOCARDIOGRAM COMPLETE W DOPPLER AND COLOR FLOW MAPPING, NM MYOCARDIAL PERFUSION SPECT STRESS AND REST Social History Tobacco Use Types Packs/Day Years Used Date Smoking Tobacco: Never Smokeless Tobacco: Never Alcohol Use Standard Drinks/Week Comments No 0 (1 standard drink = 0.6 oz pur e alcohol) [facility] Utilities Answer Date Recorded In the past 12 months has [employer], gas, oil, or water company threatened to shut off services in your home? No 10/03/2023 Overall Financial Resource Strain (CARDIA) Answe r Date Recorded How hard is it for you to pa y for the very basics like food, housing, medical care, and heating? Not hard at all 10/03/2023 PHQ-2 Answer Date Recorded PHQ-2 Total Score 0 10/03/2023 [facility] - Occupational Stress [...] money to get more. Never true 10/03/2023 [facility] IP Transportation Answer D ate Recorded [...] on file documented as of this encounter Miscellaneous Notes * Telephone Encounter - Bryan Love MA - 07/23/2024 10:48 AM EDT ----- Message from Gail Ramey APRN sent at 07/23/2024 10:13 AM EDT ----- Please let patient know that her stress test was normal there was no evidence of decreased blood flow or concern. Also let her know that her echocardiogram was normal as well her heart function is strong no evidence of heart failure. Would continue medications as they are along with good blood pressure control. Okay to keep appointment as scheduled unless she has further symptoms she wants to discuss ----- Message ----- From: Dada, Rad Results In Sent: 07/22/2024 4:30 PM EDT To: Gail Ramey APRN documented in this encounter Plan of Treatment Upcoming Encounters Date Type Department Care Team (Late st Contact Info) Description 11/11/2024 9:15 AM EDT [place] [address] Filippo De Guzman MD [address] [place] [address] [address] [id number] 12/10/2024 10:15 AM EDT Office Visit [facility] Neph[facility] [place] [address] [place] [address] [place] [address] Fouzia Wyatt MD [address] [place], [place] [phone] documented as of this encounter Visit Diagnoses Not on filedocumented in this encounter Additional Health Concerns Assessment Noted Time A fall risk assessment has been complete d for the patient 12/27/2018 4:08 PM EDT documented as of this encounter Care Teams Twister In Relationship Specialty Start Date End Date Sky Pickens MD [address] [phone] PCP - General Family Medicine 08/05/19 Fouzia Wyatt MD [address] [place] [phone] Consulting Physician Internal Medicine-Nephrology 01/18/19 Filippo De Guzman MD [address] [place] [address] [address] [id number] Internal Medicine-Cardiovascular Disease 11/11/21 documented as of this encounter
--- OUTSIDE RECORDS SUMMARY | 2024-09-17 10:45 | XMS_ITS | Encounter Summary ---
Author Organization [facility] Address [address] [place] [id number] Care Team Providers Care Practice Coordinator Name Role Phone Jose R Prado MD, Malvin Primary Care Provider + Sky Pickens MD Primary Care Provider [phone] Source Comments This information has been disclosed to you from confidential records protectfrom disclosure by state law. You shall make no further disclosure of thisinformation without the specific, written, and informed release of theindividual to whom it pertains, or as otherwise permitted by law. A generalauthorization for the release of medical or other information is not sufficientfor the purposes of the release of HIV test results or diagnoses. [id number] Health Encounter Details Date Type Department Care Team (Late st Contact Info) Description 03/22/[address] [facility] Plastic Surgery at [address] [address] Lew Cerna MD Social History Tobacco Use Types Packs/Day Years Used Date Smoking Tobacco: Never Smokeless Tobacco: Never Alcohol Use Standard Drinks/Week Comments No 0 (1 standard drink = 0.6 oz pur e alcohol) Comments No Sex and Gender Information Value Date Recorded Sex Assigned at Not on file Legal Sex Female 4:17 PM EST Gender Identity Not on file Sexual Orientation Not on file documented as of this encounter Plan of Treatment Not on file documented as of this encounter Visit Diagnoses Not on filedocumented in this encounter Care Teams Practice Coordinator Relationship Specialty Start Date End Date Malvin Odell MD [address] [place] [address] PCP - General Family Medicine 03/19/18 09/25/18 Sky Pickens MD [address] [place] [address] PCP - General Family Medicine 09/26/18 documented as of this encounter
== END 2024-09-16 23:59 | disposition home or self-care (01) ==
LOC: LAB.DROPOF 09-17 10:42
PROVIDERS: PCP Family Medicine; Visit Provider Family Medicine
DX: I10 Essential (primary) hypertension (principal)
CPT/HCPCS: 80053; 80061; 84443; 85025